=== PATIENT | male | born 1985 | race Caucasian/White ===

== ENCOUNTER 2020-02-19 12:48 | Emergency (ER) | payer OTHER, SELFPAY ==
--- NOTE | ~2020-02-19 | XR_ITS ---
EXAMINATION: XR chest 1V portable INDICATION: Cough and fever, shortness of breath TECHNIQUE: Portable AP chest at 1433 hours COMPARISON: None available FINDINGS: The lungs are free of acute opacities. There is no pleural effusion or pneumothorax. The ca rdiomediastinal silhouette is normal. The visualized bones and soft tissues are unremarkable. IMPRESSION: 1. . No acute cardiopulmonary abnormality. Reviewed, dictated and finalized at location A.
[2020-02-19 12:55] VITALS: BP 139/90; PULSE 114; RESP 18; TEMP 37.4; O2SAT 95
[2020-02-19 14:31] LABS: Basophils Percent Auto 0.6 % (0.2-1.2); Eosinophils Absolute Auto 0.1 K/mm3 (0-0.3); Eosinophils Percent Auto 0.7 % (0-4.4); Hematocrit 40.5 % (42.0-52.0); Hemoglobin 13.3 g/dL (14.0-18.0); Immature Granulocyte Absolute 0.02 K/mm3 (0.00-0.031); Immature Granulocyte Percent A 0.3 % (0-0.5); Lymphocytes Absolute Auto 2.15 K/mm3 (0.9-3.2); Lymphocytes Percent Auto 29.9 % (18.3-44.2); Mean Corpuscular HGB Conc 32.8 g/dl (32-36); Mean Corpuscular Hemoglobin 26.9 pg (26-34); Mean Corpuscular Volume 81.8 fl (80-100); Mean Platelet Volume 10.4 fl (7.4-10.4); Monocytes Absolute Auto 0.6 K/mm3 (0.1-0.6); Monocytes Percent Auto 7.6 % (2.6-8.5); Neutrophils Absolute Auto 4.4 K/mm3 (1.3-6.7); Neutrophils Percent Auto 60.9 % (45.5-73.1); Platelet Count Result 239 k/mm3 (150-375); Red Blood Count 4.95 M/mm3 (4.6-6.20); White Blood Count 7.2 K/mm3 (4.5-10.0)
--- NOTE | 2020-02-19 14:34 | ED.GENADULT ---
HPI - General Adult General Chief complaint: Unspecified <Torrie Che PA-C - Last Filed: 02/19/20 14:50> Stated complaint: Covid Symptoms <Torrie Che PA-C - Last Filed: 02/19/20 14:50> Time Seen by Provider: 02/19/20 13:45 <Torrie Che PA-C - Last Filed: 02/19/20 14:50> Source: patient <Torrie Che PA-C - Last Filed: 02/19/20 14:50> Mode of arrival: ambulatory <Torrie Che PA-C - Last Filed: 02/19/20 14:50> Limitations: no limitations <Torrie Che PA-C - Last Filed: 02/19/20 14:50> History of Present Illness HPI narrative: This is a 34 year old male that presents to the ER for cold symptoms x 3 weeks. Reports fever, cough, congestion, and sore throat. Reports some intermittent shortness of breath. Denies any chest pain or shortness of breath currently. Reports exposure to coronavirus and that he would like to be tested. <Torrie Che PA-C - Last Filed: 02/19/20 14:50> Related Data Allergies/adverse reactions: Allergies Allergy/AdvReac Type Severity Reaction Status Date / Time No Known Allergies Allergy Verified 02/19/20 12:55 <Torrie Che PA-C - Last Filed: 02/19/20 14:50> Review of Systems Review of Systems: Narrative: CONSTITUTIONAL: Reports fever ENT: Reports rhinorrhea, congestion, sore throat CARDIOVASCULAR: Denies chest pain RESPIRATORY: Reports cough. Denies dyspnea. <Torrie Che PA-C - Last Filed: 02/19/20 14:50> All systems reviewed & are unremarkable except as noted in HPI and below <Torrie Che PA-C - Last Filed: 02/19/20 14:50> [facility] Social History Social History: Social History (Updated 02/19/20 @ 14:36 by Torrie Che PA-C) Smoking status: Current every day smoker Substance use: current Substance use type: amphetamines Gender identity (if verbalized by the patient): Male <BONNIE Keyes Last Filed: 02/19/20 14:50> Exam Narrative: Exam Narrative: GENERAL: Well-appearing, well-nourished, and in no acute distress. HEAD: Normocephalic, atraumatic. EYES: EOMI. ENT: Nares clear, no rhinorrhea or epistaxis. Mucous membranes moist. Oropharynx without tonsillar hypertrophy exudate or other lesions. Bilateral TMs pearly olvera non-bulging NECK: Supple. No adenopathy or masses. CHEST: Clear to auscultation. No respiratory distress. No wheezes rales or rhonchi HEART: Regular rate and rhythm. No murmur heard. Normal peripheral pulses. EXTREMITIES: Normal range of motion. No edema. SKIN: Warm, dry, no rash. NEURO: No focal deficits. Alert and oriented x3. PSYCH: Normal mood and affect <BONNIE Keyes Last Filed: 02/19/20 14:50> Course Vital Signs Vital signs: Vital Signs Temperature 99.3 F 02/19/20 12:55 Pulse Rate 114 H 02/19/20 12:55 Respiratory Rate 18 02/19/20 12:55 Blood Pressure 139/90 02/19/20 12:55 Pulse Oximetry 95 02/19/20 12:55 Temperature 99.3 F 02/19/20 12:55 Pulse Rate 114 H 02/19/20 12:55 Respiratory Rate 18 02/19/20 12:55 Blood Pressure 139/90 02/19/20 12:55 Pulse Oximetry 95 02/19/20 12:55 <BONNIE Keyes Last Filed: 02/19/20 14:50> Vital Signs Temperature 99.3 F 02/19/20 12:55 Pulse Rate 114 H 02/19/20 12:55 Respiratory Rate 18 02/19/20 12:55 Blood Pressure 139/90 02/19/20 12:55 Pulse Oximetry 95 02/19/20 12:55 Temperature 99.3 F 02/19/20 12:55 Pulse Rate 114 H 02/19/20 12:55 Respiratory Rate 18 02/19/20 12:55 Blood Pressure 139/90 02/19/20 12:55 Pulse Oximetry 95 02/19/20 12:55 <Noris Long MD - Last Filed: 02/19/20 16:39> Medical Decision Making MDM Narrative Medical decision making narrative: Patient presents the emergency department for cold symptoms. Patient mildly tachycardic upon arrival, otherwise vitals are normal. I evaluated patient, and he left after being seen while awaiting laboratory and imaging work-up. <Torrie Che
[2020-02-19 14:46] LABS: Monoscreen Negative (Negative); Negative Monotest Control Negative (Negative); Positive Monotest Control Positive (Positive)
[2020-02-19 15:01] LABS: Alanine Aminotransferase 62 U/L (4-50); Albumin Level 4.1 g/dL (3.5-5.1); Alkaline Phosphatase 72 U/L (38-126); Aspartate Amino Transferase 66 U/L (17-59); Bilirubin,Total 1.2 mg/dL (0.2-1.3); Blood Urea Nitrogen 18 mg/dL (9-20); CRP < 0.5 mg/dL (<1.0); Calcium 8.9 mg/dL (8.4-10.2); Carbon Dioxide 28 mmol/L (22-30); Chloride 101 mmol/L (98-107); Estimated CRCL calculation 102 ml/min; Estimated Glomerular Filt Rate > 60; Glucose 114 mg/dL (75-110); Lactate Dehydrogenase 494 U/L (313-618); Potassium 4.3 mmol/L (3.4-5.0); Sodium 134 mmol/L (137-145)
[2020-02-20 13:04] LABS: SARS-CoV-2 RNA PCR Negative
== END 2020-02-19 12:55 | disposition left against medical advice (07) ==
PROVIDERS: Physician Assistant; Emergency Provider General Practice
DX: B34.9 Viral infection, unspecified (principal); Z20.828 Contact with and (suspected) exposure to other viral communicable diseases
CPT/HCPCS: 36415; 71045; 80053; 83615; 85025; 86140; 86308; 87635; 99283; C9803; U0003